=== PATIENT | female | born 1940 | race Caucasian/White ===

== ENCOUNTER 2017-06-10 16:02 | Emergency (ER) | payer MEDICARE, MEDICAID ==
[~2017-06-10] VITALS: Ht 152.4 cm; Wt 79.5 kg
[~2017-06-10 16:02] MED LIST: DEXL60CA3 PO; DULO-31 PO; EST1T PO; FERR325T28 PO; HYDR200T84 PO; NORCO10T PO; NYSL PO; PROC25SU31 RC; SUCR1ORA PO
[2017-06-10] MEDS ORDERED: normal saline 1000ML IV soln IVB ONE (18:35)
[2017-06-10] MEDS ORDERED: ondansetron/PF 4mg/2ml inj IV ONE (18:35)
[2017-06-10 18:56] LABS: BASOPHILS % (AUTO) 0.4 % (0-1); EOSINOPHILS # (AUTO) 0.1 X10'3 (0-0.9); EOSINOPHILS % (AUTO) 2.2 % (0-6); HEMATOCRIT 33.7 % (35.0-45.0); HEMOGLOBIN 11.4 g/dl (12.0-16.0); LYMPHOCYTES # (AUTO) 0.7 X10'3 (1.1-4.8); LYMPHOCYTES % (AUTO) 16.8 % (21-51); MEAN CORPUSCULAR HEMOGLOBIN 31.7 PG (27.0-31.0); MEAN CORPUSCULAR HGB CONC 33.9 % (33.0-36.5); MEAN CORPUSCULAR VOLUME 93.6 FL (78-98); MEAN PLATELET VOLUME 7.7 FL (7.4-10.4); MONOCYTES # (AUTO) 0.3 X10'3 (0-0.9); MONOCYTES % (AUTO) 5.9 % (2-12); NEUTROPHILS # (AUTO) 3.2 X10'3 (1.8-7.7); NEUTROPHILS % (AUTO) 74.7 % (42-75); PLATELET COUNT 181 X10'3 (140-440); RED CELL DISTRIBUTION WIDTH 14.8 % (11.5-14.5); WHITE BLOOD COUNT 4.3 X10'3 (4.5-11.0)
[2017-06-10 19:12] LABS: ALANINE AMINOTRANSFERASE 51 U/L (12-78); ALBUMIN 3.5 G/DL (3.4-5.0); ALKALINE PHOSPHATASE 40 IU/L (46-116); ANION GAP 7 (8-16); ASPARTATE AMINO TRANSFERASE 43 U/L (10-37); BLOOD UREA NITROGEN 17 MG/DL (7-18); CALCIUM 9.2 MG/DL (8.5-10.1); CHLORIDE 107 MMOL/L (99-107); CREATININE 0.63 MG/DL (0.40-0.90); GLUCOSE 112 MG/DL (70-104); LIPASE 72 U/L (73-393); POTASSIUM 3.1 MMOL/L (3.5-5.1); SODIUM 144 MMOL/L (135-145); TOTAL CARBON DIOXIDE 30.2 MMOL/L (24-32); TOTAL PROTEIN 7.1 G/DL (6.4-8.2); TROPONIN I < 0.04 NG/ML (0.0-0.05); eGFR > 90 ML/MIN
[2017-06-10 19:14] LABS: CLARITY,URINE Clear (Clear); COLOR,URINE Yellow (Yellow); GLUCOSE, URINE Negative (Neg); KETONES,URINE Negative (Neg); LEUKOCYTE ESTERASE ,URINE Negative (Neg); NITRITES, URINE Negative (Neg); OCCULT BLOOD,URINE Negative (Neg); PH,URINE 6.5 (4.8-8.0); PROTEIN,URINE Negative (Neg); UROBILINOGEN,URINE 0.2 E.U/dL (0.2-1.0)
[2017-06-10 19:15] LABS: UA COLLECTION TYPE CLN CATCH MIDSTREAM
[2017-06-10 19:34] VITALS: BP 125/52
[2017-06-10] MEDS ORDERED: potassium Cl 20 mEq SR tablet PO STA (19:46)
[2017-06-10] MEDS ORDERED: BISA10SU60 RC (19:51)
[2017-06-10] MEDS ORDERED: POLY17PO10 PO (19:51)
== END 2017-06-10 20:57 | disposition home or self-care (01) ==
LOC: ER 16:03
DX: K59.00 Constipation, unspecified (principal); R10.13 Epigastric pain; E87.6 Hypokalemia; I11.0 Hypertensive heart disease with heart failure; I50.9 Heart failure, unspecified; K21.9 Gastro-esophageal reflux disease without esophagitis; Z88.0 Allergy status to penicillin; Z88.2 Allergy status to sulfonamides; Z79.899 Other long term (current) drug therapy; Z88.5 Allergy status to narcotic agent; Z88.6 Allergy status to analgesic agent
CPT/HCPCS: 36415; 71045; 74176; 80053; 81003; 83690; 84484; 85025; 93005; 96361; 96374; 99285; J2405

== ENCOUNTER 2017-06-27 16:25 | Inpatient (IN) | payer MEDICARE, MEDICAID ==
[~2017-06-27] VITALS: Ht 152.4 cm; Wt 82.7 kg
[~2017-06-27 16:25] MED LIST changes: +BISA10SU60 RC; +POLY17PO10 PO
[2017-06-27 16:52] LABS: BASOPHILS % (AUTO) 0 % (0-1); EOSINOPHILS # (AUTO) 0.1 X10'3 (0-0.9); EOSINOPHILS % (AUTO) 0.9 % (0-6); HEMATOCRIT 31.8 % (35.0-45.0); HEMOGLOBIN 10.8 g/dl (12.0-16.0); LYMPHOCYTES # (AUTO) 0.1 X10'3 (1.1-4.8); LYMPHOCYTES % (AUTO) 1.7 % (21-51); MEAN CORPUSCULAR HEMOGLOBIN 31.9 PG (27.0-31.0); MEAN CORPUSCULAR HGB CONC 34.1 % (33.0-36.5); MEAN CORPUSCULAR VOLUME 93.6 FL (78-98); MEAN PLATELET VOLUME 8.1 FL (7.4-10.4); MONOCYTES # (AUTO) 0.2 X10'3 (0-0.9); MONOCYTES % (AUTO) 2.7 % (2-12); NEUTROPHILS # (AUTO) 8.5 X10'3 (1.8-7.7); NEUTROPHILS % (AUTO) 94.7 % (42-75); PLATELET COUNT 146 X10'3 (140-440); RED BLOOD COUNT 3.39 X10'6 (4.20-5.60); RED CELL DISTRIBUTION WIDTH 14.7 % (11.5-14.5)
[2017-06-27 17:09] LABS: ALANINE AMINOTRANSFERASE 180 U/L (12-78); ALBUMIN/GLOBULIN RATIO 0.8 (1.1-1.5); ALKALINE PHOSPHATASE 86 IU/L (46-116); ANION GAP 9 (8-16); ASPARTATE AMINO TRANSFERASE 182 U/L (10-37); BILIRUBIN,TOTAL 2.7 MG/DL (0.1-1.0); BLOOD UREA NITROGEN 26 MG/DL (7-18); BUN/CREATININE RATIO 25.7 (6.6-38.0); CALCIUM 9.2 MG/DL (8.5-10.1); CHLORIDE 100 MMOL/L (99-107); CREATININE 1.01 MG/DL (0.40-0.90); GLUCOSE 132 MG/DL (70-104); LIPASE 1465 U/L (73-393); SODIUM 139 MMOL/L (135-145); TOTAL CARBON DIOXIDE 30.5 MMOL/L (24-32); TOTAL PROTEIN 6.6 G/DL (6.4-8.2); eGFR 53 ML/MIN
[2017-06-27 17:11] LABS: POTASSIUM 2.4 MMOL/L (3.5-5.1)
[2017-06-27] MEDS ORDERED: potassium Cl 20 mEq SR tablet PO ONE (17:15)
[2017-06-27] MEDS ORDERED: potassium Cl 10 mEq/100mL bag IV ONE (17:15)
[2017-06-27] MEDS ORDERED: normal saline 1000ML IV soln IVB ONE (17:20)
[2017-06-27] MEDS ORDERED: potassium 10mEq/100ml NS w/LIDOcaine (10mg/bag) IV SCH (17:20)
[2017-06-27] MEDS ORDERED: magnesium oxide 400mg tablet PO ONE (17:30)
[2017-06-27] MEDS ORDERED: magnesium 2GM in 50ml NS 50 ML IV ONE (17:30)
[2017-06-27] MEDS ORDERED: IBUP-1986 PO (18:47)
[2017-06-27] MEDS ORDERED: potassium 10mEq/100ml NS w/LIDOcaine (10mg/bag) IV ONE ×2 (18:50→23:08)
[2017-06-27] MEDS ORDERED: HYDR12.55 PO (18:56)
[2017-06-27] MEDS ORDERED: ALBU18HF2 INH (18:56)
[2017-06-27] MEDS ORDERED: WHEA98PO PO (18:56)
[2017-06-27] MEDS ORDERED: CHL4T PO (18:56)
[2017-06-27] MEDS ORDERED: [UNRECOGNIZED DRUG - CODE] PO (18:56)
[2017-06-27] MEDS ORDERED: PANT40TA4 PO (19:04)
[2017-06-27] MEDS ORDERED: MEMA5TAB40 PO (19:04)
[2017-06-27] MEDS ORDERED: NITR100C11 PO (19:04)
[2017-06-27] MEDS ORDERED: FLUT16SP2 BOTHNARES (19:04)
[2017-06-27] MEDS ORDERED: LISI-600 PO (19:04)
[2017-06-27] MEDS ORDERED: ATOR20TA66 PO (19:04)
[2017-06-27 19:40] LABS: CLARITY,URINE CLEAR (Clear); COLOR,URINE YELLOW (Yellow); GLUCOSE, URINE NEGATIVE (Neg); KETONES,URINE NEGATIVE (Neg); LEUKOCYTE ESTERASE ,URINE MODERATE (Neg); NITRITES, URINE NEGATIVE (Neg); OCCULT BLOOD,URINE TRACE-INTACT (Neg); PROTEIN,URINE NEGATIVE (Neg)
[2017-06-27 19:42] LABS: UA COLLECTION TYPE STRAIGHT CATH
[2017-06-27 19:55] LABS: BACTERIA,URINE FEW /HPF (Neg); MUCUS STRANDS NONE SEEN /LPF (Neg); RBC,URINE 0-2 /HPF (0-2); SQUAMOUS EPITHELIAL CELL,UR NONE SEEN /LPF (FEW); TRANSITIONAL EPI CELLS,URINE FEW /HPF; WBC CLUMPS,URINE FEW /HPF (NEGATIVE)
[2017-06-27] MEDS ORDERED: iohexol 300mg/ml 100ml inj. ONE (20:00)
[2017-06-27] MEDS ORDERED: levoFLOXACIN-Levaquin 750MG/D5 150 ML IV STA (21:27)
[2017-06-27] MEDS ORDERED: aspirin 325mg tablet PO ONE (22:00)
[2017-06-27 22:33] LABS: ALBUMIN 2.4 G/DL (3.4-5.0); ANION GAP 9 (8-16); BLOOD UREA NITROGEN 19 MG/DL (7-18); CHLORIDE 105 MMOL/L (99-107); CREATININE 0.73 MG/DL (0.40-0.90); GLUCOSE 99 MG/DL (70-104); SODIUM 141 MMOL/L (135-145); eGFR 77 ML/MIN
[2017-06-27 22:37] LABS: POTASSIUM 2.5 MMOL/L (3.5-5.1)
[2017-06-27] MEDS ORDERED: magnesium hydroxide 30ml (MOM) UD suspension PO PRN (22:40)
[2017-06-27] MEDS ORDERED: diphenhydrAMINE 25mg capsule PO PRN (22:40)
[2017-06-27] MEDS ORDERED: diphenhydrAMINE 50 mg/ml inj IV PRN (22:40)
[2017-06-27] MEDS ORDERED: bisacodyl 10mg suppository rectal RC PRN (22:40)
[2017-06-27] MEDS ORDERED: metoclopramide 5 mg/ml inj IV PRN (22:40)
[2017-06-27] MEDS ORDERED: acetaminophen 325mg tablet PO PRN ×2 (22:40)
[2017-06-27] MEDS ORDERED: potassium Cl 20 mEq SR tablet PO PRN (22:45)
[2017-06-27] MEDS ORDERED: potassium Cl 40MEQ/NS 500ml 500 ML IV PRN ×2 (22:45)
[2017-06-27] MEDS ORDERED: temazepam 15mg capsule PO PRN (23:04)
[2017-06-27 23:14] LABS: HEMOGLOBIN A1C 5.3 % (4.5-6.2)
[2017-06-27 23:16] LABS: PHOSPHORUS 2.4 MG/DL (2.3-4.5)
[2017-06-27] MEDS: normal saline 1000ml 1,000 ML IV SCH (23:46)
[2017-06-28] MEDS: potassium Cl 20 mEq SR tablet PO PRN ×4 (05:12→19:47)
[2017-06-28] MEDS ORDERED: pantoprazole 40mg Tablet.DR PO SCH (07:30)
[2017-06-28 07:31] LABS: BASOPHILS % (AUTO) 0.1 % (0-1); EOSINOPHILS # (AUTO) 0.1 X10'3 (0-0.9); EOSINOPHILS % (AUTO) 2.7 % (0-6); HEMATOCRIT 27.7 % (35.0-45.0); HEMOGLOBIN 9.5 g/dl (12.0-16.0); LYMPHOCYTES # (AUTO) 0.3 X10'3 (1.1-4.8); LYMPHOCYTES % (AUTO) 7.2 % (21-51); MEAN CORPUSCULAR HEMOGLOBIN 31.9 PG (27.0-31.0); MEAN CORPUSCULAR HGB CONC 34.4 % (33.0-36.5); MEAN CORPUSCULAR VOLUME 92.8 FL (78-98); MONOCYTES # (AUTO) 0.3 X10'3 (0-0.9); MONOCYTES % (AUTO) 6.9 % (2-12); NEUTROPHILS # (AUTO) 3.7 X10'3 (1.8-7.7); NEUTROPHILS % (AUTO) 83.1 % (42-75); PLATELET COUNT 138 X10'3 (140-440); RED BLOOD COUNT 2.99 X10'6 (4.20-5.60); RED CELL DISTRIBUTION WIDTH 14.8 % (11.5-14.5); WHITE BLOOD COUNT 4.5 X10'3 (4.5-11.0)
[2017-06-28 07:51] LABS: ALANINE AMINOTRANSFERASE 152 U/L (12-78); ALBUMIN 2.4 G/DL (3.4-5.0); ALBUMIN/GLOBULIN RATIO 0.7 (1.1-1.5); ALKALINE PHOSPHATASE 80 IU/L (46-116); ANION GAP 6 (8-16); ASPARTATE AMINO TRANSFERASE 139 U/L (10-37); BILIRUBIN,TOTAL 2.1 MG/DL (0.1-1.0); BLOOD UREA NITROGEN 16 MG/DL (7-18); BUN/CREATININE RATIO 17.6 (6.6-38.0); CALCIUM 8.7 MG/DL (8.5-10.1); CHLORIDE 105 MMOL/L (99-107); CHOL/HDL RATIO 2.4 (0.00-4.99); CHOLESTEROL 92 MG/DL (0-200); CREATININE 0.91 MG/DL (0.40-0.90); GLUCOSE 92 MG/DL (70-104); HDL CHOLESTEROL 38 MG/DL (35-60); LDL CHOLESTEROL 38 MG/DL (50-100); LIPASE 732 U/L (73-393); SODIUM 142 MMOL/L (135-145); TOTAL CARBON DIOXIDE 30.6 MMOL/L (24-32); TOTAL PROTEIN 5.9 G/DL (6.4-8.2); TRIGLYCERIDES 55 MG/DL (20-135); eGFR 60 ML/MIN
[2017-06-28 07:54] LABS: POTASSIUM 2.9 MMOL/L (3.5-5.1)
[2017-06-28] MEDS ORDERED: docusate sod 100mg capsule PO SCH (08:00)
[2017-06-28] MEDS ORDERED: pantoprazole 40 MG vial IV SCH (08:00)
[2017-06-28] MEDS: normal saline 1000ml 1,000 ML IV SCH (08:37)
[2017-06-28] MEDS: chlorpheniramine 4mg tablet PO SCH (08:40)
[2017-06-28] MEDS: duloxetine 30mg CAPSULE.DR PO SCH (08:40)
[2017-06-28] MEDS: memantine 5mg tablet PO SCH (08:40)
[2017-06-28] MEDS: pantoprazole 40 MG vial IV SCH ×2 (08:41)
[2017-06-28] MEDS: meclizine 12.5mg tablet PO SCH ×3 (08:41→19:49)
[2017-06-28] MEDS: lisinopril 20mg tablet PO SCH (08:41)
[2017-06-28] MEDS: fluticasone nasal spray 16GM bottle NS SCH (08:42)
[2017-06-28] MEDS: K and/or MAG REPLACEMENT MC SCH (08:49)
[2017-06-28] MEDS: enoxaparin 40mg/0.4ml syringe SUBCUT SCH (14:17)
[2017-06-28] MEDS: potassium Cl 20mEq in NS 1,000 ML IV SCH (18:11)
[2017-06-28] MEDS: mag hydrox/Alum hydrox/simeth 30ml oral suspension PO PRN ×2 (19:47)
[2017-06-28] MEDS: lactobacillus rhamnosus 10,000 MMU CELLS/CAPSULE PO SCH (19:58)
[2017-06-28] MEDS ORDERED: levoFLOXACIN-Levaquin 500mg/D5 100 ML IV SCH (21:00)
[2017-06-28] MEDS ORDERED: potassium Cl 20mEq in NS 1,000 ML IV SCH (22:37)
[2017-06-29] MEDS: docusate sod 250mg capsule PO SCH ×2 (00:35→20:48)
[2017-06-29 01:20] VITALS: BP 146/76
[2017-06-29] MEDS: mag hydrox/Alum hydrox/simeth 30ml oral suspension PO PRN (01:24)
[2017-06-29] MEDS: ondansetron/PF 4mg/2ml inj IV PRN ×2 (01:25→17:49)
[2017-06-29] MEDS: albuterol 2.5 MG/3 ML nebule NEB PRN (03:19)
[2017-06-29] MEDS: HYDROmorphone 2mg tablet PO PRN ×2 (03:43→17:49)
[2017-06-29] MEDS: potassium Cl 20mEq in NS 1,000 ML IV SCH ×3 (03:47→23:02)
[2017-06-29 06:07] LABS: BASOPHILS % (AUTO) 0.2 % (0-1); EOSINOPHILS # (AUTO) 0.1 X10'3 (0-0.9); EOSINOPHILS % (AUTO) 2.3 % (0-6); HEMATOCRIT 32.1 % (35.0-45.0); HEMOGLOBIN 10.8 g/dl (12.0-16.0); LYMPHOCYTES # (AUTO) 0.6 X10'3 (1.1-4.8); LYMPHOCYTES % (AUTO) 11.6 % (21-51); MEAN CORPUSCULAR HEMOGLOBIN 31.4 PG (27.0-31.0); MEAN CORPUSCULAR HGB CONC 33.5 % (33.0-36.5); MEAN CORPUSCULAR VOLUME 93.8 FL (78-98); MEAN PLATELET VOLUME 8.9 FL (7.4-10.4); MONOCYTES # (AUTO) 0.5 X10'3 (0-0.9); MONOCYTES % (AUTO) 8.7 % (2-12); NEUTROPHILS # (AUTO) 4.3 X10'3 (1.8-7.7); NEUTROPHILS % (AUTO) 77.2 % (42-75); PLATELET COUNT 136 X10'3 (140-440); RED BLOOD COUNT 3.42 X10'6 (4.20-5.60); RED CELL DISTRIBUTION WIDTH 15.2 % (11.5-14.5); WHITE BLOOD COUNT 5.5 X10'3 (4.5-11.0)
[2017-06-29 06:32] LABS: ALANINE AMINOTRANSFERASE 144 U/L (12-78); ALBUMIN 2.7 G/DL (3.4-5.0); ALBUMIN/GLOBULIN RATIO 0.7 (1.1-1.5); ALKALINE PHOSPHATASE 93 IU/L (46-116); ANION GAP 9 (8-16); ASPARTATE AMINO TRANSFERASE 102 U/L (10-37); BILIRUBIN,TOTAL 1.4 MG/DL (0.1-1.0); BLOOD UREA NITROGEN 13 MG/DL (7-18); BUN/CREATININE RATIO 20.3 (6.6-38.0); CALCIUM 9.4 MG/DL (8.5-10.1); CHLORIDE 109 MMOL/L (99-107); CREATININE 0.64 MG/DL (0.40-0.90); GLUCOSE 94 MG/DL (70-104); LIPASE 393 U/L (73-393); POTASSIUM 4.3 MMOL/L (3.5-5.1); SODIUM 143 MMOL/L (135-145); TOTAL CARBON DIOXIDE 25.1 MMOL/L (24-32); TOTAL PROTEIN 6.6 G/DL (6.4-8.2); eGFR 90 ML/MIN
[2017-06-29 07:17] VITALS: BP 126/58
[2017-06-29] MEDS: pantoprazole 40mg Tablet.DR PO SCH (07:30)
[2017-06-29] MEDS ORDERED: pantoprazole 40mg Tablet.DR PO SCH (07:30)
[2017-06-29] MEDS: K and/or MAG REPLACEMENT MC SCH (08:00)
[2017-06-29] MEDS: lisinopril 20mg tablet PO SCH (08:47)
[2017-06-29] MEDS: duloxetine 30mg CAPSULE.DR PO SCH (08:47)
[2017-06-29] MEDS: fluticasone nasal spray 16GM bottle NS SCH (08:48)
[2017-06-29] MEDS: chlorpheniramine 4mg tablet PO SCH (08:48)
[2017-06-29] MEDS: meclizine 12.5mg tablet PO SCH ×3 (08:48→20:48)
[2017-06-29] MEDS: memantine 5mg tablet PO SCH (08:48)
[2017-06-29] MEDS: lactobacillus rhamnosus 10,000 MMU CELLS/CAPSULE PO SCH ×2 (08:48→20:48)
[2017-06-29] MEDS: enoxaparin 40mg/0.4ml syringe SUBCUT SCH (08:49)
[2017-06-29] MEDS ORDERED: magnesium Cl slow-release 64mg tablet PO PRN (09:20)
[2017-06-29] MEDS ORDERED: magnesium 4gm in 100ml NS 100 ML IV PRN (09:20)
[2017-06-29] MEDS ORDERED: magnesium 2GM in 50ml NS 50 ML IV PRN (09:20)
[2017-06-29] MEDS: levoFLOXACIN 500mg tablet PO SCH (10:41)
[2017-06-29 11:00] VITALS: BP 136/56
[2017-06-29 19:15] VITALS: BP 133/69
[2017-06-30] VITALS: BP 116/68
[2017-06-30 06:51] LABS: ALANINE AMINOTRANSFERASE 113 U/L (12-78); ALBUMIN 2.5 G/DL (3.4-5.0); ALBUMIN/GLOBULIN RATIO 0.7 (1.1-1.5); ALKALINE PHOSPHATASE 94 IU/L (46-116); ANION GAP 8 (8-16); ASPARTATE AMINO TRANSFERASE 60 U/L (10-37); BILIRUBIN,TOTAL 0.9 MG/DL (0.1-1.0); BLOOD UREA NITROGEN 8 MG/DL (7-18); BUN/CREATININE RATIO 15.7 (6.6-38.0); CALCIUM 8.9 MG/DL (8.5-10.1); CHLORIDE 108 MMOL/L (99-107); CREATININE 0.51 MG/DL (0.40-0.90); GLUCOSE 91 MG/DL (70-104); POTASSIUM 4.4 MMOL/L (3.5-5.1); SODIUM 142 MMOL/L (135-145); TOTAL PROTEIN 6.2 G/DL (6.4-8.2); eGFR > 90 ML/MIN
[2017-06-30] MEDS: K and/or MAG REPLACEMENT MC SCH (08:00)
[2017-06-30] MEDS: pantoprazole 40mg Tablet.DR PO SCH (08:27)
[2017-06-30] MEDS: chlorpheniramine 4mg tablet PO SCH (08:27)
[2017-06-30] MEDS: meclizine 12.5mg tablet PO SCH ×3 (08:28→21:31)
[2017-06-30] MEDS: memantine 5mg tablet PO SCH (08:28)
[2017-06-30] MEDS: lactobacillus rhamnosus 10,000 MMU CELLS/CAPSULE PO SCH ×2 (08:28→21:31)
[2017-06-30] MEDS: lisinopril 20mg tablet PO SCH (08:28)
[2017-06-30] MEDS: duloxetine 30mg CAPSULE.DR PO SCH (08:28)
[2017-06-30] MEDS: enoxaparin 40mg/0.4ml syringe SUBCUT SCH (08:29)
[2017-06-30] MEDS ORDERED: LORazepam 2 mg/ml vial IV ONE (08:30)
[2017-06-30] MEDS: fluticasone nasal spray 16GM bottle NS SCH (08:32)
[2017-06-30 08:43] VITALS: BP 153/79
[2017-06-30] MEDS: levoFLOXACIN 500mg tablet PO SCH (10:41)
[2017-06-30] MEDS: potassium Cl 20mEq in NS 1,000 ML IV SCH ×2 (10:41→19:47)
[2017-06-30 12:09] VITALS: BP 163/73
[2017-06-30] MEDS: diphenoxylate/atropine tablet (Lomotil) PO SCH ×2 (14:29→21:31)
[2017-06-30] MEDS: albuterol 2.5 MG/3 ML nebule NEB PRN ×2 (14:46→20:49)
[2017-06-30 18:50] VITALS: BP 120/56
[2017-06-30] MEDS: docusate sod 250mg capsule PO SCH (20:54)
[2017-07-01] VITALS: BP 128/52
[2017-07-01] MEDS: potassium Cl 20mEq in NS 1,000 ML IV SCH ×2 (04:48→15:10)
[2017-07-01 06:25] LABS: ALANINE AMINOTRANSFERASE 93 U/L (12-78); ALBUMIN 2.4 G/DL (3.4-5.0); ALBUMIN/GLOBULIN RATIO 0.7 (1.1-1.5); ALKALINE PHOSPHATASE 82 IU/L (46-116); ANION GAP 5 (8-16); ASPARTATE AMINO TRANSFERASE 49 U/L (10-37); BILIRUBIN,TOTAL 0.7 MG/DL (0.1-1.0); BLOOD UREA NITROGEN 9 MG/DL (7-18); CALCIUM 8.6 MG/DL (8.5-10.1); CHLORIDE 109 MMOL/L (99-107); GLUCOSE 88 MG/DL (70-104); POTASSIUM 4.4 MMOL/L (3.5-5.1); SODIUM 142 MMOL/L (135-145); TOTAL CARBON DIOXIDE 28.1 MMOL/L (24-32); TOTAL PROTEIN 5.9 G/DL (6.4-8.2); eGFR > 90 ML/MIN
[2017-07-01 07:30] VITALS: BP 139/77
[2017-07-01] MEDS: K and/or MAG REPLACEMENT MC SCH (08:00)
[2017-07-01] MEDS: fluticasone nasal spray 16GM bottle NS SCH (08:50)
[2017-07-01] MEDS: enoxaparin 40mg/0.4ml syringe SUBCUT SCH (08:51)
[2017-07-01] MEDS: pantoprazole 40mg Tablet.DR PO SCH (08:52)
[2017-07-01] MEDS: lisinopril 20mg tablet PO SCH (08:52)
[2017-07-01] MEDS: duloxetine 30mg CAPSULE.DR PO SCH (08:52)
[2017-07-01] MEDS: memantine 5mg tablet PO SCH (08:52)
[2017-07-01] MEDS: meclizine 12.5mg tablet PO SCH ×2 (08:52→14:03)
[2017-07-01] MEDS: lactobacillus rhamnosus 10,000 MMU CELLS/CAPSULE PO SCH (08:53)
[2017-07-01] MEDS: diphenoxylate/atropine tablet (Lomotil) PO SCH ×2 (08:53→14:04)
[2017-07-01] MEDS: chlorpheniramine 4mg tablet PO SCH (08:53)
[2017-07-01] MEDS: levoFLOXACIN 500mg tablet PO SCH (11:35)
[2017-07-01 12:00] VITALS: BP 154/64
== END 2017-07-01 16:15 | DRG 871 ==
LOC: ER 16:26 → ED HOLD 22:37 → MED 3N 06-29 01:18
PROVIDERS: ADMIT Family Medicine; ATTEND Internal Medicine
PROC: BW211ZZ Computerized Tomography (CT Scan) of Abdomen and Pelvis using Low Osmolar Contrast (ICD-10-PCS; principal; 2017-06-27)
DX: A41.9 Sepsis, unspecified organism (principal); K85.90 Acute pancreatitis without necrosis or infection, unspecified; N17.9 Acute kidney failure, unspecified; I11.0 Hypertensive heart disease with heart failure; I50.30 Unspecified diastolic (congestive) heart failure; N39.0 Urinary tract infection, site not specified; K86.3 Pseudocyst of pancreas; E86.0 Dehydration; E87.6 Hypokalemia; B96.20 Unspecified Escherichia coli [E. coli] as the cause of diseases classified elsewhere; F03.90 Unspecified dementia, unspecified severity, without behavioral disturbance, psychotic disturbance, mood disturbance, and anxiety; K21.9 Gastro-esophageal reflux disease without esophagitis; K52.9 Noninfective gastroenteritis and colitis, unspecified; Z60.2 Problems related to living alone; Z88.1 Allergy status to other antibiotic agents; Z91.041 Radiographic dye allergy status; Z88.5 Allergy status to narcotic agent; Z88.0 Allergy status to penicillin; Z88.2 Allergy status to sulfonamides; Z88.8 Allergy status to other drugs, medicaments and biological substances; Z91.048 Other nonmedicinal substance allergy status; Z79.899 Other long term (current) drug therapy
CPT/HCPCS: 36415; 74177; 74181; 80048; 80053; 80061; 81001; 83036; 83690; 83735; 84100; 84132; 84484; 85025; 86301; 87040; 87070; 87077; 87088; 87186; 93005; 94640; 94760; 96365; 96366; 96367; 96368; 97116; 97162; 97530; 99285; C9113; J1650; J1956; J2060; J2405; J3475; J3480; J7030; J8597; Q9967

== ENCOUNTER 2018-05-15 15:51 | Emergency (ER) | payer MEDICARE, MEDICAID ==
[~2018-05-15] VITALS: Ht 152.4 cm; Wt 90.0 kg
[~2018-05-15 15:51] MED LIST changes: +ALBU18HF2 INH; +ATOR20TA66 PO; -BISA10SU60 RC; +CHLO1TB. PO; -DEXL60CA3 PO; -EST1T PO; -FERR325T28 PO; +FLUT16SP2 BOTHNARES; +FURO-150 PO; +HYDR12.55 PO; -HYDR200T84 PO; +IBUP-1984 PO; +LISI-600 PO; +MEMA5TAB PO; -NORCO10T PO; -NYSL PO; +OLOP2.5D OP; +PANT-47 PO; -POLY17PO10 PO; +POTA8CAP9 PO; -PROC25SU31 RC; -SUCR1ORA PO; +[UNRECOGNIZED DRUG - CODE] PO
[2018-05-15] MEDS ORDERED: acetaminophen 325mg tablet PO ONE (16:25)
[2018-05-15 17:10] VITALS: BP 140/77
== END 2018-05-15 20:24 | disposition home or self-care (01) ==
LOC: ER 15:51
DX: S16.1XXA Strain of muscle, fascia and tendon at neck level, initial encounter (principal); M25.552 Pain in left hip; R42 Dizziness and giddiness; I11.0 Hypertensive heart disease with heart failure; I50.9 Heart failure, unspecified; K21.9 Gastro-esophageal reflux disease without esophagitis; Z90.710 Acquired absence of both cervix and uterus; Z90.49 Acquired absence of other specified parts of digestive tract; Z88.0 Allergy status to penicillin; Z88.2 Allergy status to sulfonamides; Z88.1 Allergy status to other antibiotic agents; Z79.899 Other long term (current) drug therapy; W18.30XA Fall on same level, unspecified, initial encounter; Y93.89 Activity, other specified; Y92.098 Other place in other non-institutional residence as the place of occurrence of the external cause; Y99.8 Other external cause status
CPT/HCPCS: 70450; 72125; 73502; 99284

== ENCOUNTER 2018-11-16 14:20 | Emergency (ER) | payer MEDICARE, MEDICAID ==
[~2018-11-16] VITALS: Ht 152.4 cm; Wt 100.0 kg
[~2018-11-16 14:20] MED LIST changes: +POTA8CAP20 PO; -POTA8CAP9 PO
--- NOTE | 2018-11-16 14:35 | NUR ---
PT GIVEN ICE PACK FOR RIGHT SIDE OF FOREHEAD.
[2018-11-16 14:37] VITALS: BP 94/58
--- NOTE | 2018-11-16 14:40 | NUR ---
PT TO CT
[2018-11-16] MEDS ORDERED: acetaminophen 325mg tablet PO ONE (15:50)
== END 2018-11-16 16:44 | disposition home or self-care (01) ==
LOC: ER 14:21
DX: S00.83XA Contusion of other part of head, initial encounter (principal); I11.0 Hypertensive heart disease with heart failure; I50.9 Heart failure, unspecified; K21.9 Gastro-esophageal reflux disease without esophagitis; Z90.49 Acquired absence of other specified parts of digestive tract; Z90.710 Acquired absence of both cervix and uterus; Z98.890 Other specified postprocedural states; Z88.0 Allergy status to penicillin; Z88.2 Allergy status to sulfonamides; Z88.5 Allergy status to narcotic agent; Z79.899 Other long term (current) drug therapy; W18.39XA Other fall on same level, initial encounter; Y93.89 Activity, other specified; Y92.89 Other specified places as the place of occurrence of the external cause; Y99.8 Other external cause status; M25.561 Pain in right knee
CPT/HCPCS: 70450; 99284

== ENCOUNTER 2019-03-09 04:28 | Emergency (ER) | payer MEDICARE, MEDICAID ==
[~2019-03-09] VITALS: Ht 152.4 cm; Wt 90.9 kg
--- NOTE | 2019-03-09 06:05 | NUR ---
Patient is sleeping comfortably on gurney.
--- NOTE | 2019-03-09 06:55 | NUR ---
pt out to [place] via [facility] with geothermal electrical engineer
--- NOTE | 2019-03-09 07:15 | NUR ---
pt returns from [place]
[2019-03-09 07:58] LABS: BASOPHILS % (AUTO) 0.3 % (0-1); EOSINOPHILS # (AUTO) 0.1 X10'3 (0-0.9); EOSINOPHILS % (AUTO) 1.3 % (0-6); HEMATOCRIT 33.8 % (35.0-45.0); HEMOGLOBIN 11.3 g/dl (12.0-16.0); LYMPHOCYTES # (AUTO) 0.7 X10'3 (1.1-4.8); LYMPHOCYTES % (AUTO) 6.9 % (21-51); MEAN CORPUSCULAR HEMOGLOBIN 32.8 PG (27.0-31.0); MEAN CORPUSCULAR HGB CONC 33.6 g/dL (33.0-36.5); MEAN CORPUSCULAR VOLUME 97.8 FL (78-98); MEAN PLATELET VOLUME 7.5 FL (7.4-10.4); MONOCYTES # (AUTO) 0.5 X10'3 (0-0.9); MONOCYTES % (AUTO) 4.6 % (2-12); NEUTROPHILS # (AUTO) 8.7 X10'3 (1.8-7.7); NEUTROPHILS % (AUTO) 86.9 % (42-75); PLATELET COUNT 182 X10'3 (140-440); RED BLOOD COUNT 3.45 X10'6 (4.20-5.60); RED CELL DISTRIBUTION WIDTH 14.1 % (11.5-14.5)
[2019-03-09 08:33] LABS: ALANINE AMINOTRANSFERASE 24 U/L (12-78); ALBUMIN 3.6 G/DL (3.4-5.0); ALBUMIN/GLOBULIN RATIO 1.1 (1.1-1.5); ALKALINE PHOSPHATASE 32 IU/L (46-116); ANION GAP 4 (8-16); ASPARTATE AMINO TRANSFERASE 18 U/L (10-37); BILIRUBIN,TOTAL 0.5 MG/DL (0.1-1.0); BLOOD UREA NITROGEN 18 MG/DL (7-18); BUN/CREATININE RATIO 30.5 (6.6-38.0); CALCIUM 9.2 MG/DL (8.5-10.1); CHLORIDE 110 MMOL/L (99-107); CREATININE 0.59 MG/DL (0.40-0.90); GLUCOSE 96 MG/DL (70-104); POTASSIUM 3.2 MMOL/L (3.5-5.1); SODIUM 145 MMOL/L (135-145); TOTAL CARBON DIOXIDE 30.6 MMOL/L (24-32); TOTAL PROTEIN 6.9 G/DL (6.4-8.2); eGFR > 90 ML/MIN
[2019-03-09 08:42] LABS: MAGNESIUM 1.9 MG/DL (1.5-2.4)
[2019-03-09 08:55] VITALS: BP 132/72
[2019-03-09] MEDS ORDERED: potassium Cl 20 mEq SR tablet PO ONE (09:00)
== END 2019-03-09 09:43 | disposition home or self-care (01) ==
LOC: ER 04:28
DX: M54.2 Cervicalgia (principal); R53.1 Weakness; I11.0 Hypertensive heart disease with heart failure; I50.9 Heart failure, unspecified; R60.0 Localized edema; K21.9 Gastro-esophageal reflux disease without esophagitis; Z90.49 Acquired absence of other specified parts of digestive tract; Z90.710 Acquired absence of both cervix and uterus; Z98.890 Other specified postprocedural states; Z88.0 Allergy status to penicillin; Z88.6 Allergy status to analgesic agent; Z88.5 Allergy status to narcotic agent; Z88.8 Allergy status to other drugs, medicaments and biological substances; Z79.899 Other long term (current) drug therapy; W07.XXXA Fall from chair, initial encounter; Y93.89 Activity, other specified; Y92.89 Other specified places as the place of occurrence of the external cause; Y99.8 Other external cause status
CPT/HCPCS: 36415; 70450; 71045; 72125; 80053; 83735; 83880; 84100; 84484; 85025; 93005; 99284

== ENCOUNTER 2019-03-28 00:21 | Emergency (ER) | payer MEDICARE, MEDICAID ==
[~2019-03-28] VITALS: Ht 152.4 cm; Wt 93.2 kg
--- NOTE | 2019-03-28 00:49 | NUR ---
[facility] WORKER SONAM [phone] WILL BE HER DC TRANSPORT.
[2019-03-28 02:10] LABS: BASOPHILS % (AUTO) 0.7 % (0-1); EOSINOPHILS # (AUTO) 0.2 X10'3 (0-0.9); EOSINOPHILS % (AUTO) 2.5 % (0-6); HEMATOCRIT 33.1 % (35.0-45.0); HEMOGLOBIN 11.1 g/dl (12.0-16.0); LYMPHOCYTES # (AUTO) 1.2 X10'3 (1.1-4.8); LYMPHOCYTES % (AUTO) 20.4 % (21-51); MEAN CORPUSCULAR HEMOGLOBIN 32.6 PG (27.0-31.0); MEAN CORPUSCULAR HGB CONC 33.5 g/dL (33.0-36.5); MEAN CORPUSCULAR VOLUME 97.2 FL (78-98); MEAN PLATELET VOLUME 7.6 FL (7.4-10.4); MONOCYTES # (AUTO) 0.4 X10'3 (0-0.9); NEUTROPHILS # (AUTO) 4.2 X10'3 (1.8-7.7); NEUTROPHILS % (AUTO) 69.4 % (42-75); PLATELET COUNT 212 X10'3 (140-440); RED CELL DISTRIBUTION WIDTH 14.4 % (11.5-14.5); WHITE BLOOD COUNT 6.1 X10'3 (4.5-11.0)
[2019-03-28 02:14] LABS: CLARITY,URINE CLEAR (Clear); COLOR,URINE YELLOW (Yellow); GLUCOSE, URINE NEGATIVE (Neg); KETONES,URINE NEGATIVE (Neg); LEUKOCYTE ESTERASE ,URINE NEGATIVE (Neg); NITRITES, URINE NEGATIVE (Neg); OCCULT BLOOD,URINE NEGATIVE (Neg); PROTEIN,URINE NEGATIVE (Neg); UROBILINOGEN,URINE 0.2 E.U/dL (0.2-1.0)
[2019-03-28 02:15] LABS: UA COLLECTION TYPE STRAIGHT CATH
[2019-03-28 02:22] LABS: PARTIAL THROMBOPLASTIN TIME 25 SECONDS (22-32)
[2019-03-28 02:38] LABS: ALANINE AMINOTRANSFERASE 19 U/L (12-78); ALBUMIN 3.6 G/DL (3.4-5.0); ALKALINE PHOSPHATASE 35 IU/L (46-116); ANION GAP 6 (8-16); ASPARTATE AMINO TRANSFERASE 14 U/L (10-37); BILIRUBIN,TOTAL 0.3 MG/DL (0.1-1.0); BLOOD UREA NITROGEN 20 MG/DL (7-18); BUN/CREATININE RATIO 28.2 (6.6-38.0); CALCIUM 9.2 MG/DL (8.5-10.1); CHLORIDE 108 MMOL/L (99-107); CREATININE 0.71 MG/DL (0.40-0.90); GLUCOSE 100 MG/DL (70-104); MAGNESIUM 2.2 MG/DL (1.5-2.4); POTASSIUM 3.8 MMOL/L (3.5-5.1); SODIUM 145 MMOL/L (135-145); TOTAL CARBON DIOXIDE 31.3 MMOL/L (24-32); TOTAL PROTEIN 7.1 G/DL (6.4-8.2); eGFR 79 ML/MIN
--- NOTE | 2019-03-28 02:46 | NUR ---
AWAITING LAB RESULTS, CURRENT VSS. PT BOOSTED IN BED AND GIVEN WARM BLANKETS.
--- NOTE | 2019-03-28 04:26 | NUR ---
Pt given warm blanket. reports she is comfortable and with only her moderate chronic pain to her sacrum. Current VSS.
--- NOTE | 2019-03-28 04:58 | NUR ---
REQUESTS GAIT TEST. PT REPORTS SHE USES WALKER AT HOME
--- NOTE | 2019-03-28 05:32 | NUR ---
[facility] WORKER, ANGELITA CALLED . MESSAGE LEFT FOR HER TO CALL FOR DISCHARGE.
--- NOTE | 2019-03-28 06:32 | NUR ---
[facility] WORKER , ANGELITA, CONTACTED AND REPORTS SHE WILL SEE THE PATIENT BETWEEN 12-1 TODAY, BUT THIS IS NOT A REGULARLY SCHEDULED DAY FOR PT TO BE SEEN. SHE REPORTS THAT PT HAS USED A TAXISERVICE IN PAST AND ALSO TRANSPORT VAN.
--- NOTE | 2019-03-28 06:38 | NUR ---
PT REPORTS SHE DOES NOT HAVE MONEY TO PAY FOR A MEDICAL TRANSPORT TO GET HOME.
--- NOTE | 2019-03-28 06:54 | NUR ---
A NEXT DOOR NEIGHBOR IS CALLED AND A MESSAGE IS LEFT ON HIS MACHINE TO SEE IF HE WOULD BE ABLE TO GIVE PT A RIDE HOME.
--- NOTE | 2019-03-28 10:42 | NUR ---
PT'S [facility] [employer] SCIENTIST ANGELITA WILL BE COMING TO TAKE PT HOME.
[2019-03-28 11:21] VITALS: BP 140/70
--- NOTE | 2019-03-28 11:24 | NUR ---
[facility] WORKER ARRIVES TO TAKE PT HOME. [employer] ASSISTS PT TO W/C AND OUT TO CAR.
== END 2019-03-28 11:28 | disposition home or self-care (01) ==
LOC: ER 00:22
DX: R53.1 Weakness (principal); R59.0 Localized enlarged lymph nodes; R05 Cough; J34.89 Other specified disorders of nose and nasal sinuses; I11.0 Hypertensive heart disease with heart failure; I50.9 Heart failure, unspecified; K21.9 Gastro-esophageal reflux disease without esophagitis; Z90.49 Acquired absence of other specified parts of digestive tract; Z90.710 Acquired absence of both cervix and uterus; Z98.890 Other specified postprocedural states; Z88.0 Allergy status to penicillin; Z88.6 Allergy status to analgesic agent; Z88.2 Allergy status to sulfonamides; Z88.5 Allergy status to narcotic agent; Z88.8 Allergy status to other drugs, medicaments and biological substances; Z79.899 Other long term (current) drug therapy
CPT/HCPCS: 36415; 71045; 80053; 81003; 83735; 83880; 84484; 85025; 85610; 85730; 93005; 99284